=== PATIENT | female | born 1980 | race Caucasian/White ===

== ENCOUNTER 2018-07-15 16:42 | Emergency (ER) | payer MEDICAID ==
[~2018-07-15] VITALS: Ht 157.5 cm; Wt 80.7 kg
[2018-07-15 16:58] VITALS: BP_SYST 159
[2018-07-15 17:26] VITALS: BP_SYST 148
== END 2018-07-15 17:26 | disposition home or self-care (01) ==
LOC: SED 16:42
DX: K08.89 Other specified disorders of teeth and supporting structures (principal); F17.200 Nicotine dependence, unspecified, uncomplicated; I10 Essential (primary) hypertension
CPT/HCPCS: 81025; 99283